=== PATIENT | male | born 1970 ===

== ENCOUNTER 2019-11-02 14:16 | Emergency (ER) | payer OTHER ==
[~2019-11-02] VITALS: Ht 175.3 cm; Wt 89.8 kg
[2019-11-02] MEDS ORDERED: SYNTHROID75 MCG (14:25)
== END 2019-11-02 20:00 | disposition home or self-care (01) ==
LOC: ER 14:16
DX: M62.830 Muscle spasm of back (principal); M54.5 Low back pain; Z03.818 Encounter for observation for suspected exposure to other biological agents ruled out

== ENCOUNTER 2022-10-10 20:47 | Emergency (ER) | payer OTHER ==
[~2022-10-10] VITALS: Ht 175.3 cm; Wt 87.5 kg
[~2022-10-10 20:47] MED LIST: SYNTHROID75 MCG
[2022-10-10] MEDS ORDERED: CLINDAMYCI75 MG/5 M1 PO (21:06)
[2022-10-10] MEDS ORDERED: IBUPROFEN600 MG PO (21:39)
[2022-10-10] MEDS ORDERED: MORGIDOX100 MG PO (21:39)
== END 2022-10-10 21:47 | disposition home or self-care (01) ==
LOC: ER 20:47
DX: L73.1 Pseudofolliculitis barbae (principal); L03.211 Cellulitis of face; E05.80 Other thyrotoxicosis without thyrotoxic crisis or storm